=== PATIENT | female | born 1990 | race Caucasian/White ===

== ENCOUNTER 2016-09-27 06:03 | Emergency (ER) | payer BC, MEDICAID ==
[~2016-09-27] VITALS: Ht 157.5 cm; Wt 56.5 kg
[2016-09-27] MEDS: SODIUM CHLORIDE 0.9% 1,000 ML IV ONE ×2 (06:40→06:51)
[2016-09-27] MEDS ORDERED: HYDROmorphone 1 MG/ML, 1ML ONE (06:53)
[2016-09-27] MEDS ORDERED: ONDANSETRON 2MG/ML, 2ML ONE (06:54)
[2016-09-27] MEDS ORDERED: FAMOTIDINE 20 MG/2 ML ONE (06:54)
[2016-09-27] MEDS ORDERED: HYDROmorphone 1 MG/ML, 1ML IVPush PRN (07:00)
[2016-09-27] MEDS ORDERED: FAMOTIDINE 20 MG/2 ML IVP ONE (07:00)
[2016-09-27] MEDS ORDERED: ONDANSETRON 2MG/ML, 2ML IVPush ONE (07:00)
[2016-09-27] MEDS ORDERED: SODIUM CHLORIDE FLUSH 10ML SYR IVF ONE (07:00)
[2016-09-27] MEDS ORDERED: SODIUM CHLORIDE 0.9% 1,000ML IVBOLUS ONE (07:00)
[2016-09-27 07:21] LABS: ASPARTATE AMINO TRANSFERASE 10 U/L (15-37); BLOOD UREA NITROGEN 9 mg/dL (7-18)
[2016-09-27] MEDS ORDERED: KETOROLAC 30 MG/1 ML IVPush ONE (09:30)
[2016-09-27 10:57] VITALS: BP 115/83
== END 2016-09-27 10:59 | disposition home or self-care (01) ==
LOC: ED 08:14
DX: R10.12 Left upper quadrant pain (principal); R10.32 Left lower quadrant pain
CPT/HCPCS: 36415; 74020; 76830; 80053; 81001; 83690; 84703; 85025; 87086; 96361; 96374; 96375; 99285; J1170; J2405; J7030; S0028

== ENCOUNTER 2016-12-11 16:30 | Emergency (ER) | payer BC, MEDICAID ==
[~2016-12-11] VITALS: Ht 157.5 cm; Wt 60.3 kg
[2016-12-11] MEDS ORDERED: METOCLOPRAMIDE 5 MG/ML, 2ML ONE (17:09)
[2016-12-11] MEDS ORDERED: DIPHENHYDRAMINE 50 MG/ML, 1ML ONE (17:09)
[2016-12-11] MEDS ORDERED: KETOROLAC 30 MG/1 ML ONE (17:09)
[2016-12-11] MEDS ORDERED: SODIUM CHLORIDE FLUSH 10ML SYR IVF ONE ×2 (17:30)
[2016-12-11] MEDS ORDERED: KETOROLAC 30 MG/1 ML IVPush ONE (17:30)
[2016-12-11] MEDS ORDERED: METOCLOPRAMIDE 5 MG/ML, 2ML IVPush ONE (17:30)
[2016-12-11] MEDS ORDERED: DIPHENHYDRAMINE 50 MG/ML, 1ML IVPush ONE (17:30)
[2016-12-11] MEDS ORDERED: SODIUM CHLORIDE 0.9% 1,000ML IVBOLUS ONE (17:30)
[2016-12-11 17:38] LABS: BLOOD UREA NITROGEN 8 mg/dL (7-18)
[2016-12-11 19:16] VITALS: BP 95/51
== END 2016-12-11 19:18 | disposition home or self-care (01) ==
LOC: ED 18:57
DX: R10.13 Epigastric pain (principal); R11.2 Nausea with vomiting, unspecified; R19.7 Diarrhea, unspecified; F17.200 Nicotine dependence, unspecified, uncomplicated
CPT/HCPCS: 36415; 80048; 82040; 84703; 85025; 96361; 96374; 96375; 99285; J1200; J1885; J2765; J7030

== ENCOUNTER 2019-09-29 10:03 | Emergency (ER) | payer BC, OTHER ==
[~2019-09-29] VITALS: Ht 162.6 cm; Wt 63.0 kg
--- NOTE | 2019-09-29 10:26 | NUR ---
PT AMBULATED TO THE BR W/ A STEADY GAIT.
[2019-09-29] MEDS ORDERED: ONDANSETRON 2MG/ML, 2ML ONE (10:52)
[2019-09-29] MEDS ORDERED: SODIUM CHLORIDE FLUSH 10ML SYR IVF ONE (11:00)
[2019-09-29] MEDS ORDERED: SODIUM CHLORIDE 0.9% 1,000ML IVBOLUS ONE (11:00)
[2019-09-29] MEDS ORDERED: ONDANSETRON 2MG/ML, 2ML IVPush ONE (11:00)
[2019-09-29 11:01] LABS: BASOPHILS # (AUTO) 0.06 x10^3/uL (0-0.1); BASOPHILS % (AUTO) 1 % (0-1); EOSINOPHILS # (AUTO) 0.03 x10^3/uL (0-0.4); EOSINOPHILS % (AUTO) 0 % (1-7); LYMPHOCYTES # (AUTO) 1.95 x10^3/uL (1-3.4); LYMPHOCYTES % (AUTO) 17 % (22-44); MD NO; MEAN CORPUSCULAR HEMOGLOBIN 30.5 pg (27.0-34.8); MEAN CORPUSCULAR HGB CONC 33.5 g/dL (32.4-35.8); MEAN PLATELET VOLUME 8.4 fL (7.4-10.4); MONOCYTES % (AUTO) 5 % (2-9); NEUTROPHILS # (AUTO) 8.65 x10^3/uL (1.8-6.8); NEUTROPHILS % (AUTO) 77 % (42-75); PLATELET COUNT 276 x10^3/uL (130-400); RED BLOOD COUNT 5.26 x10^6/uL (3.82-5.3); RED CELL DISTRIBUTION WIDTH 12.7 % (9.6-15.2)
[2019-09-29] MEDS: SODIUM CHLORIDE 0.9% 1,000 ML IV ONE ×2 (11:01→11:26)
[2019-09-29 11:04] LABS: MICROSCOPIC INDICATED
[2019-09-29 11:13] LABS: ALANINE AMINOTRANSFERASE 14 U/L (12-78); ALBUMIN 4.1 g/dL (3.4-5.0); ANION GAP 8 mmol/L (5-15); CALCIUM 8.6 mg/dL (8.5-10.1); CHLORIDE 109 mmol/L (98-107)
--- NOTE | 2019-09-29 11:15 | NUR ---
THIS IS A 29 YO F W/ C/O N/V/D SINCE MONDAY. PT REPORTS GENERAL EPIGASTRIC PAIN AND 2 EPISODES OF VOMITING TODAY. PT DENIES LOW BACK PAIN, PAIN W/ URINATION. VSS, NADN. PT RESTING ON GURNEY W/ CALL LIGHT IN REACH, SIDE RAILS UPX2. PIV STARTED, PT MEDICATED PER EMAR. AWAITING RESULTS.
[2019-09-29 11:18] LABS: ALKALINE PHOSPHATASE 96 U/L (45-117); BILIRUBIN,TOTAL 0.5 mg/dL (0.2-1.0); TOTAL PROTEIN 7.4 g/dL (6.4-8.2)
--- NOTE | 2019-09-29 11:45 | NUR ---
ALL TESTS RESULTED. PT IS UP FOR RECHECK AT THIS TIME.
[2019-09-29] MEDS ORDERED: PROMETHAZINE 25 MG/ML, 1ML ONE (12:33)
--- NOTE | 2019-09-29 12:54 | NUR ---
PT REPORTS RELIEF OF NAUSEA AFTER MEDS. PROVIDED WATER FOR PO CHALLENGE.
[2019-09-29] MEDS ORDERED: PROMETHAZINE 25 MG/ML, 1ML IM ONE (13:00)
[2019-09-29 13:27] VITALS: BP 95/58
--- NOTE | 2019-09-29 13:28 | NUR ---
PT ABLE TO HOLD DOWN FLUIDS. WILL UPDATE PROVIDER.
--- NOTE | 2019-09-29 14:31 | NUR ---
Patient given discharge instructions and they have confirmed that they understand the instructions. Patient ambulatory with steady gait.
== END 2019-09-29 14:31 | disposition home or self-care (01) ==
LOC: ED 10:46
DX: R11.2 Nausea with vomiting, unspecified (principal); E86.0 Dehydration; R19.7 Diarrhea, unspecified; R10.84 Generalized abdominal pain
CPT/HCPCS: 36415; 80053; 81001; 83690; 84703; 85025; 87086; 96361; 96372; 96374; 99285; J2405; J2550; J7030

== ENCOUNTER 2021-01-12 19:53 | Emergency (ER) | payer OTHER ==
[~2021-01-12] VITALS: Ht 157.5 cm; Wt 57.0 kg
--- NOTE | 2021-01-12 21:58 | NUR ---
PT TO ROOM FROM [facility]. STATES SHE WAS TAKING A CA+ SUPP AT 1600 THIS EVENING AND HAS THE SENSATION LIKE IT IS STUCK IN HER UPPER ESOPH. ATTEMPTED TO GAG HERSELF UNTIL SHE VOMITED BUT UNSUCCESSFUL TO RELIEVE SENSATION. ABLE TO TOLERATE PO WATER AT HOME HOWEVER SENSATION REMAINS. NO ACUTE DISTRESS. CALM AND COOPERATIVE.
[2021-01-12] MEDS ORDERED: MAALOX/HYOSCYAMINE/LIDOCAINE 45 ML BTL ONE (22:12)
[2021-01-12] MEDS ORDERED: MAALOX/HYOSCYAMINE/LIDOCAINE 45 ML BTL PO ONE (22:30)
[2021-01-12] MEDS ORDERED: LIDOCAINE 4% TOPICAL SOLUTION 50 ML TP ONE (23:00)
[2021-01-12] MEDS ORDERED: LIDOCAINE GEL 2%, 5ML ONE (23:29)
[2021-01-13 00:29] VITALS: BP 103/65
== END 2021-01-13 00:51 | disposition home or self-care (01) ==
LOC: ED 22:37
DX: J04.0 Acute laryngitis (principal); F17.210 Nicotine dependence, cigarettes, uncomplicated
CPT/HCPCS: 71045; 99284; 99406